=== PATIENT | male | born 1950 | race African-American/Black ===

== ENCOUNTER 2020-03-21 14:55 | Emergency (ER) | payer MEDICARE, BC, OTHER ==
[~2020-03-21] VITALS: Ht 170.2 cm; Wt 102.7 kg
[2020-03-21 14:57] VITALS: Ht 170.2 cm; Wt 102.7 kg
[2020-03-21] MEDS ORDERED: TENORMIN50 MG PO (14:59)
[2020-03-21] MEDS ORDERED: ASPIRIN81 MG PO (14:59)
[2020-03-21 17:15] LABS: BASOPHILS 0.4 % (0-2); HEMATOCRIT 40.2 % (42.0-54.0); HEMOGLOBIN 12.9 g/dL (13.5-17.5); IMMATURE GRANULOCYTES 0.2 % (0-5); LYMPHOCYTES 33.8 % (15-50); MCH 28.7 pg (26.0-34.0); MCHC 32.1 g/dL (31.0-37.0); MCV 89.3 fL (80.0-100.0); MEAN PLATELET VOLUME 8.4 fL (7.4-10.4); MONOCYTES 8.6 % (2-11); PLATELET COUNT 208 10x3/uL (130-400); RDW 14.7 % (11.5-14.5); WBC 5.3 10x3/uL (4.8-10.8)
[2020-03-21 17:28] LABS: ANION GAP 6.4 mmol/L (8-16); CALCIUM 8.2 mg/dL (8.5-10.1); CARBON DIOXIDE 29.8 mmol/L (21.0-32.0); CREATININE - SERUM 1.1 mg/dL (0.6-1.3); POTASSIUM - SERUM 4.2 mmol/L (3.5-5.1)
[2020-03-21 17:36] LABS: ALBUMIN 3.6 g/dL (3.4-5.0); BILIRUBIN - TOTAL 0.64 mg/dL (0.2-1.3); PROTEIN - SERUM 7.2 g/dL (6.4-8.2)
[2020-03-21 18:50] VITALS: BP 131/85
== END 2020-03-21 18:50 | disposition home or self-care (01) ==
LOC: D.ER 14:55
PROVIDERS: Family Medicine
DX: S03.2XXA Dislocation of tooth, initial encounter (principal); W19.XXXA Unspecified fall, initial encounter; Y93.9 Activity, unspecified; Y92.9 Unspecified place or not applicable; E78.5 Hyperlipidemia, unspecified; I10 Essential (primary) hypertension; K21.9 Gastro-esophageal reflux disease without esophagitis